=== PATIENT | male | born 1965 | race Caucasian/White ===

== ENCOUNTER 2017-02-27 13:24 | Emergency (ER) | payer BC ==
--- NOTE | 2017-02-27 13:39 | UC ---
Eye Complaint HPI - HPI Summary HPI Summary: 51 y/o male presents to the urgent care c/o LF eye redness for the past 2 days. Pt states he thinks is pink eye since this morning when he woke up he has a crusting yellowish eye discharge. The were mild itchiness and mild swelling yesterday. 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 Pt denies eye pain, fever, DESOUZA , SOB, chest pain, N/V/ D. He doesn't have a PCP " - History of Current Complaint Chief Complaint: UCEye Stated Complaint: LEFT EYE COMPLAINT Time Seen by Provider: 02/27/17 13:33 Hx Obtained From: Patient Onset/Duration: Gradual Onset, Lasting Days, Still Present Timing: Days Severity Initially: Mild Severity Currently: Moderate Pain Intensity: 0 Pain Scale Used: 0-10 Numeric Location of Injury: Conjunctiva Character: Foreign Body Sensation Aggravating Factor(s): Nothing Alleviating Factor(s): Nothing Associated Signs And Symptoms: Positive: Drainage (Purulent), Swelling. Negative: Photophobia, Vision Impairment Right, Fever - Risk Factors Penetrating Injury Risk Factor: Negative Globe Rupture Risk Factors: Negative Acute Glaucoma Risk Factors: Negative Optic Artery Occlusion Risk Factors: Negative - Allergies/Home Medications Allergies/Adverse Reactions: Allergies Allergy/AdvReac Type Severity Reaction Status Date / Time No Known Allergies Allergy Verified 02/27/17 13:33 PMH/Surg Hx/FS Hx/Imm Hx Previously Healthy: Yes Endocrine History: Other Other Endocrine History: Behcet disease - Surgical History Surgical History: Yes Surgery Procedure, Year, and Place: right wrist fx - Family History Known Family History: Positive: Hypertension - Social History Occupation: Employed Full-time Lives: With Family Alcohol Use: Occasionally Substance Use Type: None Smoking Status (MU): Former Smoker Review of Systems Constitutional: Negative Skin: Negative Eyes: Drainage - yellowish, Eye Redness ENT: Negative Respiratory: Negative Cardiovascular: Negative Gastrointestinal: Negative Genitourinary: Negative Motor: Negative Neurovascular: Negative Musculoskeletal: Negative Neurological: Negative Psychological: Negative All Other Systems Reviewed And Are Negative: Yes Physical Exam Triage Information Reviewed: Yes Appearance: Well-Appearing, No Pain Distress, Well-Nourished, Obese Vital Signs Reviewed: Yes Eyes: Positive: Conjunctiva Inflamed - RT eye with erythematous conjunctiva and mild yellowish discharge. mild swelling of the upper lid. PERRLA, EOMI, fundi grossly normal. LF eye w/ vision. WNL ENT: Positive: Normal ENT inspection, Hearing grossly normal, Pharynx normal, TMs normal Dental Exam: Normal Neck exam: Normal Neck: Positive: Supple, Nontender, No Lymphadenopathy Respiratory Exam: Normal Respiratory: Positive: Chest non-tender, Lungs clear, Normal breath sounds Cardiovascular Exam: Normal Cardiovascular: Positive: RRR, No Murmur, Pulses Normal Abdominal Exam: Normal Abdomen Description: Positive: Nontender, No Organomegaly, Soft. Negative: CVA Tenderness (R), CVA Tenderness (L) Bowel Sounds: Positive: Present Musculoskeletal Exam: Normal Neurological Exam: Normal Psychological Exam: Normal Skin Exam: Normal Eye Complaint Course/Dx - Course Course Of Treatment: 51 y/o male presents to the urgent care c/o LF eye redness for the past 2 days. Pt states he thinks is pink eye since this morning when he woke up he has a crusting yellowish eye discharge. The were mild itchiness and mild swelling yesterday. 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 Pt denies eye pain, fever, DESOUZA , SOB, chest pain, N/V/D. He doesn't have a PCP. Hx obtained. PE abnormal findings: RT eye with erythematous conjunctiva and mild yellowish discharge. mild swelling of the upper lid. PERRLA, EOMI, fundi grossly normal. LF eye w/ vision. WNL. Most likely Bacterial conjunctivitis. Pt Rx Ciprofloxacin opthalmic drops. Advised if symptoms worsen to return to the urgen care or f/u with PCP. Pt also cousel on elevated blood Pressure. Decrease salt intake and exercise. Make an appt woth a PCP in the [facility] [place] [facility] referral center. Pt understood and agreed. Left clinic ambulating. - Differential Dx/Diagnosis Differential Diagnosis/HQI/PQRI: Conjunctivitis, Corneal Abrasion, Keratitis, Periorbital Cellulitis, Uveitis Provider Diagnoses: Bacterial conjunctivitis Discharge - Discharge Plan Condition: Stable Disposition: HOME Prescriptions: Ciprofloxacin 0.3% OPTH.ANDRES* [Cipro 0.3% Opth*] 1 drop LEFT EYE Q2H #1 btl Patient Education Materials: Conjunctivitis (ED), Low Sodium Diet (ED) Referrals: Non Staff,Doctor [Primary Care Provider] - [facility] [place] REFERR[facility] [Outside] Additional Instructions: Please apply medication as instructed. wash your hands to avoid transmission. and if symptoms do not improve, advised to return to the urgent care or f/u with PCP for further evaluation and treatment. Decrease salt in your diet and do exercise. Make and appt w/ a PCP for further evaluation.
[2017-02-27 13:50] VITALS: BP 145/84
== END 2017-02-27 14:00 | disposition home or self-care (01) ==
LOC: UCCORT 13:24
DX: H10.32 Unspecified acute conjunctivitis, left eye (principal); H54.41 Blindness, right eye, normal vision left eye; E66.9 Obesity, unspecified; Z87.891 Personal history of nicotine dependence
CPT/HCPCS: 99212; G0463

== ENCOUNTER 2017-03-24 15:53 | Emergency (ER) | payer BC ==
[2017-03-24 16:06] VITALS: BP 162/104
--- NOTE | 2017-03-24 16:06 | UC ---
Neck Pain HPI - HPI Summary HPI Summary: 51 year old female presents with complains of left sided neck pain. The swelling was sudden in onset and very painful. - History of Current Complaint Stated Complaint: NECK SWELLING Time Seen by Provider: 03/24/17 16:01 - Allergies/Home Medications Allergies/Adverse Reactions: Allergies Allergy/AdvReac Type Severity Reaction Status Date / Time No Known Allergies Allergy Verified 03/24/17 16:06 Home Medications: Home Medications NK [No Home Medications Reported] 03/24/17 [History Confirmed 03/24/17] PMH/Surg Hx/FS Hx/Imm Hx Previously Healthy: Yes - Surgical History Surgical History: Yes Surgery Procedure, Year, and Place: right wrist fx - Family History Known Family History: Positive: Hypertension - Social History Alcohol Use: Occasionally Substance Use Type: None Smoking Status (MU): Former Smoker Type: Cigars Review Of Systems Constitutional: Positive: Negative Skin: Positive: Negative Eyes: Positive: Negative ENT: Positive: Other - left sided neck pain Musculoskeletal: Positive: Negative All Other Systems Reviewed And Are Negative: Yes Physical Exam Triage Information Reviewed: Yes Vital Signs: Initial Vital Signs Temp 36.7 C 03/24/17 16:01 Pulse 75 03/24/17 16:01 Resp 17 03/24/17 16:01 BP 162/104 03/24/17 16:01 Pulse Ox 98 03/24/17 16:01 Eye Exam: Normal ENT: Positive: Other: - left sided neck pain Dental Exam: Normal Neck exam: Normal Neck: Positive: 1 Respiratory Exam: Normal Cardiovascular Exam: Normal Abdominal Exam: Normal Musculoskeletal Exam: Normal Neurological Exam: Normal Psychological Exam: Normal Skin Exam: Normal Neck Pain Course/Dx - Differential Dx/Diagnosis Provider Diagnoses: LEFT SIDED NECK SWELLING Discharge - Discharge Plan Condition: Stable Disposition: HOME Patient Education Materials: Parotid Duct Obstruction (ED), Sialoadenitis (ED) , Neck Pain (ED) Referrals: Non Staff,Doctor [Medical Doctor] - Additional Instructions: PLEASE GO TO THE ER TO GET A CT OF THE NECK TO RULE OUT CARCINOMA.
== END 2017-03-24 16:21 | disposition home or self-care (01) ==
LOC: UCCORT 15:53
DX: R22.1 Localized swelling, mass and lump, neck (principal); Z87.891 Personal history of nicotine dependence
CPT/HCPCS: 99211; G0463